=== PATIENT | female | born 1965 | race Caucasian/White ===

== ENCOUNTER 2017-04-27 22:07 | Emergency (ER) | payer BC ==
[~2017-04-27] VITALS: Ht 175.3 cm; Wt 83.9 kg
[~2017-04-27 22:07] MED LIST: OLME40TA13 PO
[2017-04-27 22:50] VITALS: BP_SYST 140
[2017-04-27] MEDS ORDERED: NACL 0.9% 1,000 ML IV ONE (23:08)
[2017-04-27] MEDS ORDERED: KETOROLAC TROMETHAMINE 30 MG VIAL IVP ONE (23:15)
[2017-04-27] MEDS ORDERED: MORPHINE 4 MG/ML INJ. SYRINGE IVP ONE (23:15)
[2017-04-27] MEDS ORDERED: ONDANSETRON HCL 4 MG/2 ML VIAL IVP ONE (23:15)
[2017-04-27 23:33] LABS: BASOPHILS % (AUTO) 0.8 % (0.0-2.0); EOSINOPHILS % (AUTO) 0.6 % (0.0-4.0); HEMATOCRIT 41.1 % (36-48); HEMOGLOBIN 13.8 g/dL (12.0-16.0); LYMPHOCYTES # (AUTO) 0.5 K/uL (1.0-5.5); LYMPHOCYTES % (AUTO) 16.8 % (20.5-51.5); MEAN CORPUSCULAR HEMOGLOBIN 31 pg (27-31); MEAN CORPUSCULAR HGB CONC 34 % (32-36); MEAN CORPUSCULAR VOLUME 92 fL (79.0-98.0); MONOCYTES # (AUTO) 0.5 K/uL (0.0-1.0); MONOCYTES % (AUTO) 14.5 % (1.7-9.3); NEUTROPHILS # (AUTO) 2.2 K/uL (1.8-7.7); NEUTROPHILS % (AUTO) 67.3 % (40.0-70.0); PLATELET COUNT (AUTO) 196 K/uL (130-430); RED BLOOD CELL COUNT(AUTO) 4.49 MIL/uL (4.2-6.2); RED CELL DISTRIBUTION WIDTH 12.9 % (9.0-15.0); WHITE BLOOD COUNT (AUTO) 3.2 K/uL (4.8-10.8)
[2017-04-27 23:41] LABS: CALCIUM 8.6 mg/dL (8.4-11.0); CREATININE 0.79 mg/dL (0.55-1.30); POTASSIUM 3.7 mmol/L (3.5-5.1)
[2017-04-28 00:56] VITALS: BP_SYST 138
== END 2017-04-28 00:56 | disposition home or self-care (01) ==
LOC: SED 22:07
DX: J09.X2 Influenza due to identified novel influenza A virus with other respiratory manifestations (principal); I10 Essential (primary) hypertension
CPT/HCPCS: 36415; 80048; 85025; 86710; 96361; 96374; 96375; 99284; J1885; J2405; J7030

== ENCOUNTER 2018-05-17 14:37 | Emergency (ER) | payer BC ==
[~2018-05-17] VITALS: Ht 175.3 cm; Wt 83.9 kg
[2018-05-17 15:10] VITALS: BP_SYST 169
[2018-05-17] MEDS ORDERED: ONDANSETRON 4 MG ODT TAB PO ONE (16:00)
[2018-05-17] MEDS ORDERED: IPRATROPIUM/ALBUTEROL SULFATE 3 ML AMPUL.NEB (DUONEB) INH ONE (16:00)
[2018-05-17] MEDS ORDERED: KETOROLAC TROMETHAMINE 60 MG/2 ML VIAL IM ONE (16:00)
[2018-05-17 16:21] LABS: BASOPHILS # (AUTO) 0.1 K/uL (0.0-0.2); BASOPHILS % (AUTO) 0.9 % (0.0-2.0); EOSINOPHILS # (AUTO) 0.1 K/uL (0.0-0.4); EOSINOPHILS % (AUTO) 1.9 % (0.0-4.0); HEMATOCRIT 47.8 % (36-48); HEMOGLOBIN 16.3 g/dL (12.0-16.0); LYMPHOCYTES # (AUTO) 1.1 K/uL (1.0-5.5); LYMPHOCYTES % (AUTO) 16.3 % (20.5-51.5); MEAN CORPUSCULAR HEMOGLOBIN 31 pg (27-31); MEAN CORPUSCULAR HGB CONC 34 % (32-36); MEAN CORPUSCULAR VOLUME 89 fL (79.0-98.0); MONOCYTES # (AUTO) 0.2 K/uL (0.0-1.0); MONOCYTES % (AUTO) 3.6 % (1.7-9.3); NEUTROPHILS # (AUTO) 5.1 K/uL (1.8-7.7); NEUTROPHILS % (AUTO) 77.3 % (40.0-70.0); PLATELET COUNT (AUTO) 287 K/uL (130-430); RED BLOOD CELL COUNT(AUTO) 5.35 MIL/uL (4.2-6.2); RED CELL DISTRIBUTION WIDTH 12.5 % (9.0-15.0); WHITE BLOOD COUNT (AUTO) 6.6 K/uL (4.8-10.8)
[2018-05-17 16:36] LABS: CREATININE 0.81 mg/dL (0.55-1.30); POTASSIUM 3.8 mmol/L (3.5-5.1)
[2018-05-17 16:41] LABS: TOTAL BILIRUBIN 0.5 mg/dL (0.0-1.0)
[2018-05-17 16:42] LABS: ALBUMIN 4.3 g/dL (3.4-4.8)
[2018-05-17 17:11] LABS: BILIRUBIN,URINE NEGATIVE (NEGATIVE); BLOOD, URINE 1+ (NEGATIVE); CLARITY/URINE HAZY (CLEAR); COLOR,URINE YELLOW (YELLOW); GLUCOSE,URINE NEGATIVE (NEGATIVE); KETONES,URINE NEGATIVE (NEGATIVE); LEUKOCYTE ESTERASE ,URINE 1+ (NEGATIVE); NITRITE, URINE NEGATIVE (NEGATIVE); PROTEIN URINE NEGATIVE (NEGATIVE); UROBILINOGEN,URINE 0.2 (0.2-1.0)
[2018-05-17 17:15] LABS: BACTERIA,URINE MANY /HPF (None Seen); MUCUS,URINE None Seen /LPF (None Seen); WBC,URINE 50-80 /HPF (0-3); YEAST,URINE Few /HPF (None Seen)
[2018-05-17] MEDS ORDERED: HYDROcodone/ACETAMIN 5-325 MG TAB (NORCO/ VICODIN) PO ONE (17:15)
[2018-05-17] MEDS ORDERED: HYDROcodone/ACETAMIN 7.5-325 MG TAB PO ONE (17:15)
[2018-05-17 18:35] VITALS: BP_SYST 146
== END 2018-05-17 18:35 | disposition home or self-care (01) ==
LOC: SED 14:37
DX: J20.9 Acute bronchitis, unspecified (principal); N39.0 Urinary tract infection, site not specified; I10 Essential (primary) hypertension; R11.0 Nausea; Z90.710 Acquired absence of both cervix and uterus
CPT/HCPCS: 36415; 71046; 80053; 81000; 81025; 84484; 85025; 86710; 87086; 87186; 93005; 94640; 96372; 99284; J1885; J7620; Q0162

== ENCOUNTER 2020-05-13 14:01 | Emergency (ER) | payer BC, SELFPAY ==
[~2020-05-13] VITALS: Ht 175.3 cm; Wt 83.9 kg
[2020-05-13 14:01] VITALS: BP_SYST 125
[~2020-05-13 14:01] MED LIST changes: +OLME40TA12 PO; -OLME40TA13 PO
[2020-05-13 15:49] VITALS: BP_SYST 125
== END 2020-05-13 15:49 | disposition home or self-care (01) ==
LOC: SED 14:01
DX: B34.9 Viral infection, unspecified (principal); I10 Essential (primary) hypertension; Z20.822 Contact with and (suspected) exposure to COVID-19
CPT/HCPCS: 99283; U0003

== ENCOUNTER 2020-06-18 17:24 | Emergency (ER) | payer BC, SELFPAY ==
[~2020-06-18] VITALS: Ht 175.3 cm; Wt 83.9 kg
[2020-06-18 17:24] VITALS: BP_SYST 182
[2020-06-18] MEDS: ASPIRIN 81 MG TAB.CHEW PO ONE (18:00)
[2020-06-18 18:36] LABS: BASOPHILS % (AUTO) 0.6 % (0.0-2.0); EOSINOPHILS # (AUTO) 0.1 K/uL (0.0-0.4); EOSINOPHILS % (AUTO) 1.5 % (0.0-4.0); HEMATOCRIT 43.9 % (36-48); LYMPHOCYTES # (AUTO) 2.9 K/uL (1.0-5.5); LYMPHOCYTES % (AUTO) 36.2 % (20.5-51.5); MEAN CORPUSCULAR HEMOGLOBIN 31 pg (27-31); MEAN CORPUSCULAR HGB CONC 34 % (32-36); MEAN CORPUSCULAR VOLUME 89 fL (79.0-98.0); MONOCYTES # (AUTO) 0.4 K/uL (0.0-1.0); MONOCYTES % (AUTO) 5.2 % (1.7-9.3); NEUTROPHILS # (AUTO) 4.5 K/uL (1.8-7.7); NEUTROPHILS % (AUTO) 56.5 % (40.0-70.0); PLATELET COUNT (AUTO) 249 K/uL (130-430); RED BLOOD CELL COUNT(AUTO) 4.91 MIL/uL (4.2-6.2); RED CELL DISTRIBUTION WIDTH 13.8 % (9.0-15.0)
[2020-06-18 19:14] LABS: CALCIUM 10.2 mg/dL (8.4-11.0); CREATININE 0.76 mg/dL (0.55-1.30); POTASSIUM 3.7 mmol/L (3.5-5.1)
[2020-06-18 19:20] LABS: ALBUMIN 4.4 g/dL (3.4-4.8); TOTAL BILIRUBIN 0.4 mg/dL (0.0-1.0)
[2020-06-18 21:06] VITALS: BP_SYST 135
== END 2020-06-18 21:10 | disposition home or self-care (01) ==
LOC: SED 17:24
DX: R07.89 Other chest pain (principal); I10 Essential (primary) hypertension
CPT/HCPCS: 36415; 71045; 80053; 83880; 84484; 85025; 93005; 99285

== ENCOUNTER 2020-09-23 21:25 | Emergency (ER) | payer BC, SELFPAY ==
[~2020-09-23] VITALS: Ht 175.3 cm; Wt 83.9 kg
[2020-09-23 21:25] VITALS: BP_SYST 163
--- NOTE | 2020-09-23 21:27 | NUR ---
Patient to ER bed 06 to gown for evaluation. Side rails up. Report given to STEVEN COLMENARES
--- NOTE | 2020-09-23 21:28 | NUR ---
Came in ER ambulatory accompanied by daughter this 55 year old female, AAOX4, breathing spontaneously at room air, not in distress noted. With chief complaints of unhealed wound at right foot since July, history of hypertension and 2x Ceasarean section. No known allergy. vital signs stable
--- NOTE | 2020-09-23 21:38 | NUR ---
Dr. Mulligan at bedside, cleansing of wound at right foot, small pus noted, wound culture sent lab.
--- NOTE | 2020-09-23 21:59 | NUR ---
Medication given as ordered
[2020-09-23] MEDS ORDERED: SULFAMETHOXAZOLE/TRIMETHOPR DS 1 TABLET PO ONE (22:00)
[2020-09-23] MEDS ORDERED: CLIN300C12 PO (22:02)
[2020-09-23 22:18] VITALS: BP_SYST 128
--- NOTE | 2020-09-23 22:18 | NUR ---
Patient given written and verbal discharge instructions and verbalizes understanding. ER MD discussed with patient the results and treatment provided. Patient in stable condition. ID arm band removed. Rx of Clindamycin given. Patient educated on pain management and to follow up with PMD. Pain Scale 0/10. Opportunity for questions provided and answered. Medication side effect fact sheet provided.
== END 2020-09-23 22:18 | disposition home or self-care (01) ==
LOC: SED 21:25
DX: L02.611 Cutaneous abscess of right foot (principal); I10 Essential (primary) hypertension; Z79.899 Other long term (current) drug therapy
CPT/HCPCS: 87070-TC; 99283